=== PATIENT | male | born 2000 | race Caucasian/White ===

== ENCOUNTER → 2022-03-28 | Outpatient (CLI) | payer OTHER | LOC: US 13:25 | PROVIDERS: ATTEND Family Medicine | DX: R22.1 Localized swelling, mass and lump, neck (principal) | CPT/HCPCS: 76536; 76882 ==

== ENCOUNTER → 2023-12-07 | Day surgery (SDC) | payer OTHER ==
[~2023-12-07] MED LIST: FAMOTIDINE20 MG PO; FENTANYL CITRATE/PF 100MCG/2 ML INJ ONE; FEROSUL325 MG PO; LIDOCAINE HCL 2% LOCAL INJ 5 ML SDV VIAL INJ ONE; METOCLOPRAMIDE HCL 10 MG/2ML VIAL ONE; PROPOFOL IV EMULSION 10 MG/ML 50 ML VIAL IV ONE; SIMETHICONE 40 MG/0.6 ML BTL ONE
[2023-12-07] MEDS: LACTATED RINGER'S 1,000 ML ONE (06:12)
[2023-12-07 07:38] VITALS: TEMP 97.8
[2023-12-07 08:05] VITALS: BP 118/72; PULSE 87; RESP 15; O2SAT 98
== END | disposition home or self-care (01) ==
LOC: ENDO 05:46
PROVIDERS: ATTEND Internal Medicine Gastroenterology
DX: K20.0 Eosinophilic esophagitis (principal); K29.70 Gastritis, unspecified, without bleeding; K29.80 Duodenitis without bleeding; K31.89 Other diseases of stomach and duodenum; K44.9 Diaphragmatic hernia without obstruction or gangrene; Z71.3 Dietary counseling and surveillance; M41.9 Scoliosis, unspecified; Z71.89 Other specified counseling
CPT/HCPCS: 43239; 43450; J2001; J2470; J2704; J2765; J3010; J7121